=== PATIENT | female | born 1945 | race African-American/Black ===

== ENCOUNTER 2020-04-01 17:13 | Emergency (ER) | payer BC ==
[~2020-04-01] VITALS: Ht 170.2 cm; Wt 137.0 kg
[~2020-04-01 17:13] MED LIST: ASPI-1497 MT; diclofenac; losartan; naproxen
[2020-04-01] MEDS ORDERED: ACETAMINOPHEN 325MG TABLET PO STA (18:32)
[2020-04-01] MEDS ORDERED: PIPERACILLIN/TAZ 3.375G PREMIX 50 ML IV ONE (18:45)
[2020-04-01] MEDS ORDERED: VANCOMYCIN 1 G PREMIX 200 ML IV ONE (18:45)
[2020-04-01] MEDS ORDERED: SODIUM CHLORIDE 0.9% 1000ML BAG (SEPSIS BOLUS) IV ONE (18:45)
[2020-04-01 18:47] LABS: BASOPHILS % 0.5 % (0.0-2.0); EOSINOPHILS % 0.7 % (0.0-5.0); HEMOGLOBIN. 10.1 g/dL (12.0-16.0); LYMPHOCYTES % 18.1 % (20.0-50.0); MEAN CORPUSCULAR HEMOGLOBIN 32.5 pg (28.0-32.0); MEAN CORPUSCULAR VOLUME 99.8 fL (81.0-99.0); MEAN PLATELET VOLUME 10.2 fl (7.4-10.4); MONOCYTES % 11.2 % (2.0-8.0); NEUTROPHILS % 69.5 % (40.0-76.0); PLATELET 120 x1000/uL (130-400); RED CELL DISTRIBUTION WIDTH 15.2 % (11.6-14.6)
[2020-04-01 18:54] LABS: CHLORIDE 111 mEq/L (98-107)
[2020-04-01 18:57] LABS: INR 1.2; PROTHROMBIN TIME 12.3 sec (9.6-11.0)
[2020-04-01 22:59] LABS: CLARITY URINE CLOUDY (CLEAR); COLOR URINE DARK YELLOW (YELLOW); KETONES URINE NEGATIVE (NEGATIVE); LEUKOCYTE ESTERASE URINE NEGATIVE (NEGATIVE); NITRITE URINE NEGATIVE (NEGATIVE); OCCULT BLOOD URINE NEGATIVE (NEGATIVE); PROTEIN URINE 1+ (NEGATIVE); SPECIFIC GRAVITY URINE 1.025 (1.005-1.030)
[2020-04-02] MEDS ORDERED: ONDANSETRON HCL 4MG/2ML INJ IV STA (01:03)
[2020-04-02] MEDS ORDERED: MORPHINE SULFATE 4 MG/ML CPJ (NOT FOR IM USE) IV STA (01:03)
[2020-04-02 04:09] VITALS: BP 135/76
== END 2020-04-02 04:10 | disposition short-term general hospital (02) ==
LOC: ER 17:13 → CANBEDREQ 04-02 02:32 → ER 04-02 04:10
DX: T81.49XA Infection following a procedure, other surgical site, initial encounter (principal); T81.44XA Sepsis following a procedure, initial encounter; N28.9 Disorder of kidney and ureter, unspecified; G89.29 Other chronic pain; M54.89 Other dorsalgia; R00.0 Tachycardia, unspecified; I10 Essential (primary) hypertension; Y83.8 Other surgical procedures as the cause of abnormal reaction of the patient, or of later complication, without mention of misadventure at the time of the procedure; Y92.018 Other place in single-family (private) house as the place of occurrence of the external cause
CPT/HCPCS: 36415; 71045; 72131; 80053; 81003; 83605; 84484; 85025; 85610; 87040; 87086; 93005; 96374; 96375; 99285; J2543; J3370; J7030

== ENCOUNTER 2020-08-22 17:30 | Emergency (ER) | payer BC ==
[~2020-08-22] VITALS: Ht 170.2 cm; Wt 100.0 kg
[2020-08-22] MEDS ORDERED: IBUPROFEN 400MG TABLET PO ONE (18:30)
[2020-08-22] MEDS ORDERED: IBUP-2028 MT (18:36)
[2020-08-22] MEDS ORDERED: CIPHCO LEFT EAR (18:36)
[2020-08-22] MEDS ORDERED: AMOX-424 MT (19:56)
[2020-08-22 23:20] VITALS: BP 151/81
== END 2020-08-22 23:27 | disposition home or self-care (01) ==
LOC: ER 17:30
DX: T16.2XXA Foreign body in left ear, initial encounter (principal); H60.592 Other noninfective acute otitis externa, left ear; M25.562 Pain in left knee; M25.561 Pain in right knee; X58.XXXA Exposure to other specified factors, initial encounter; Y93.89 Activity, other specified; Y92.018 Other place in single-family (private) house as the place of occurrence of the external cause; I10 Essential (primary) hypertension; Z86.73 Personal history of transient ischemic attack (TIA), and cerebral infarction without residual deficits
CPT/HCPCS: 73560; 99283

== ENCOUNTER 2020-09-28 17:35 | Emergency (ER) | payer BC ==
[~2020-09-28] VITALS: Ht 167.6 cm; Wt 91.0 kg
[~2020-09-28 17:35] MED LIST changes: +AMOX-424 MT; +CIPHCO LEFT EAR; +IBUP-2028 MT
[2020-09-28 21:13] LABS: BASOPHILS % 0.3 % (0.0-2.0); EOSINOPHILS % 1.3 % (0.0-5.0); HEMATOCRIT. 25.1 % (36.0-48.0); HEMOGLOBIN. 8.6 g/dL (12.0-16.0); LYMPHOCYTES % 24.4 % (20.0-50.0); MEAN CORPUSCULAR VOLUME 105.7 fL (81.0-99.0); MONOCYTES % 4.2 % (2.0-8.0); NEUTROPHILS % 69.8 % (40.0-76.0); PLATELET 188 x1000/uL (130-400); RED BLOOD CELL COUNT 2.38 mill/uL (4.2-5.4); RED CELL DISTRIBUTION WIDTH 24.4 % (11.6-14.6)
[2020-09-28] MEDS ORDERED: SODIUM CHLORIDE 0.9% 1,000 ML IV ONE (21:15)
[2020-09-28 21:17] LABS: CHLORIDE 119 mEq/L (98-107)
[2020-09-28 21:25] LABS: INR 1.2; PROTHROMBIN TIME 12.4 sec (9.6-11.0)
[2020-09-28 21:53] LABS: CLARITY URINE CLEAR (CLEAR); COLOR URINE DARK YELLOW (YELLOW); KETONES URINE TRACE (NEGATIVE); LEUKOCYTE ESTERASE URINE TRACE (NEGATIVE); NITRITE URINE NEGATIVE (NEGATIVE); OCCULT BLOOD URINE NEGATIVE (NEGATIVE); PROTEIN URINE 2+ (NEGATIVE); SPECIFIC GRAVITY URINE 1.021 (1.005-1.030); UROBILINOGEN URINE 0.2 E.U./dL (0.2-1.0)
[2020-09-28 21:54] LABS: PLATELET ESTIMATE NORMAL
[2020-09-28] MEDS ORDERED: CEFTRIAXONE 1 G PREMIX 50 ML IV ONE (23:00)
[2020-09-29 01:00] VITALS: BP 153/74
== END 2020-09-29 02:55 | disposition short-term general hospital (02) ==
LOC: ER 17:35 → CANBEDREQ 09-29 06:14
DX: N39.0 Urinary tract infection, site not specified (principal); K52.9 Noninfective gastroenteritis and colitis, unspecified; D53.9 Nutritional anemia, unspecified; I69.354 Hemiplegia and hemiparesis following cerebral infarction affecting left non-dominant side; Z74.01 Bed confinement status
CPT/HCPCS: 36415; 71045; 74176; 80053; 81003; 83605; 83690; 83880; 84145; 84484; 85025; 85610; 87040; 87086; 93005; 96361; 96365; 99285; J0696; J7030

== ENCOUNTER 2021-01-05 13:47 | Inpatient (IN) | payer BC, MEDICARE ==
[~2021-01-05] VITALS: Ht 160 cm; Wt 119.3 kg
[2021-01-05 15:43] LABS: HEMATOCRIT. 28.5 % (36.0-48.0); HEMOGLOBIN. 8.8 g/dL (12.0-16.0); MEAN CORPUSCULAR HEMOGLOBIN 31.3 pg (28.0-32.0); PLATELET 158 x1000/uL (130-400); RED BLOOD CELL COUNT 2.82 mill/uL (4.2-5.4)
[2021-01-05 15:50] LABS: CHLORIDE 122 mEq/L (98-107)
[2021-01-05 15:51] LABS: INR 1.4; PROTHROMBIN TIME 14.3 sec (9.6-11.0)
[2021-01-05] MEDS ORDERED: VANCOMYCIN 1 G PREMIX 200 ML IV ONE (16:15)
[2021-01-05] MEDS ORDERED: PIPERACILLIN/TAZ 3.375G PREMIX 50 ML IV ONE (16:15)
[2021-01-05] MEDS ORDERED: SODIUM CHLORIDE 0.9% 1,000 ML IV ONE (16:15)
[2021-01-05 16:49] LABS: NUCLEATED RED BLOOD CELLS 2 /100 WBC; PLATELET ESTIMATE NORMAL
[2021-01-05] MEDS ORDERED: MORPHINE SULFATE 4 MG/ML CPJ (NOT FOR IM USE) IV ONE (17:15)
[2021-01-06] MEDS ORDERED: MAGNESIUM/ALUMINUM HYDROXIDE/SIMETHICONE 30ML UDC PO PRN (09:00)
[2021-01-06] MEDS ORDERED: ONDANSETRON HCL 4MG/2ML INJ IV PRN (09:00)
[2021-01-06] MEDS ORDERED: DIPHENHYDRAMINE 50MG/ML VIAL IV PRN (09:00)
[2021-01-06] MEDS ORDERED: DOCUSATE SODIUM 100MG CAPSULE PO PRN (09:00)
[2021-01-06] MEDS ORDERED: HYDROCODONE/ACETAMINOPHEN 5/325MG TABLET PO PRN (09:00)
[2021-01-06] MEDS ORDERED: ACETAMINOPHEN 650MG SUPP PR PRN (09:00)
[2021-01-06] MEDS ORDERED: LORAZEPAM 0.5MG TABLET PO PRN (09:00)
[2021-01-06] MEDS: ASPIRIN 81MG EC TABLET PO SCH (09:00)
[2021-01-06] MEDS ORDERED: ACETAMINOPHEN 325MG TABLET PO PRN (09:00)
[2021-01-06] MEDS ORDERED: GUAIFENESIN 200MG/10ML SUGAR FREE UDC PO PRN (09:00)
[2021-01-06] MEDS ORDERED: IPRATROPIUM/ALBUTEROL 0.5-3(2.5)MG/3ML NEB NEB PRN (09:00)
[2021-01-06] MEDS ORDERED: CLONIDINE 0.1MG TABLET PO PRN (09:00)
[2021-01-06] MEDS ORDERED: NA PHOS,M-B/NA PHOS,DI-BA ENEMA 118ML PR PRN (09:00)
[2021-01-06] MEDS ORDERED: CEFTRIAXONE 1 G PREMIX 50 ML IV SCH (09:00)
[2021-01-06 12:30] VITALS: BP 196/139
[2021-01-06 17:50] LABS: CHLORIDE 122 mEq/L (98-107)
[2021-01-06 17:58] LABS: CREATINE KINASE 54 IU/L (26-192)
[2021-01-06 18:01] LABS: CREATINE KINASE MB FRACTION 6.6 ng/mL (0.5-3.6)
[2021-01-06 20:00] VITALS: BP 104/68
[2021-01-06] MEDS ORDERED: VANCOMYCIN 750 MG PREMIX 150 ML IV NR (20:00)
[2021-01-06] MEDS: DEXTROSE 5% WATER 1,000 ML IV SCH (20:11)
[2021-01-06] MEDS: CEFTRIAXONE 1,000 MG in DEXTROSE 5% WATER 50 ML IV SCH (20:22)
[2021-01-06] MEDS: FAMOTIDINE 20MG TABLET PO SCH (21:00)
[2021-01-06 21:01] LABS: HEMATOCRIT. 28.6 % (36.0-48.0); HEMOGLOBIN. 9.2 g/dL (12.0-16.0); MEAN CORPUSCULAR HEMOGLOBIN 32.6 pg (28.0-32.0); MEAN CORPUSCULAR VOLUME 101.4 fL (81.0-99.0); MEAN PLATELET VOLUME 10.7 fl (7.4-10.4); PLATELET 88 x1000/uL (130-400); RED BLOOD CELL COUNT 2.82 mill/uL (4.2-5.4); RED CELL DISTRIBUTION WIDTH 20.7 % (11.6-14.6)
[2021-01-06 23:04] LABS: NUCLEATED RED BLOOD CELLS 2 /100 WBC; PLATELET ESTIMATE DECREASED
[2021-01-07] VITALS (14 sets, daily range): BP systolic 63–160; BP diastolic 24–107
[2021-01-07 00:17] LABS: CREATINE KINASE MB FRACTION 7.2 ng/mL (0.5-3.6)
[2021-01-07] MEDS: ASPIRIN 81MG EC TABLET PO SCH (08:38)
[2021-01-07 10:33] LABS: HEMATOCRIT. 27.6 % (36.0-48.0); HEMOGLOBIN. 8.4 g/dL (12.0-16.0); MEAN CORPUSCULAR HEMOGLOBIN 32.5 pg (28.0-32.0); MEAN PLATELET VOLUME 10.2 fl (7.4-10.4); PLATELET 141 x1000/uL (130-400); RED BLOOD CELL COUNT 2.58 mill/uL (4.2-5.4); RED CELL DISTRIBUTION WIDTH 21.4 % (11.6-14.6)
[2021-01-07 10:42] LABS: CHLORIDE 120 mEq/L (98-107)
[2021-01-07 10:50] LABS: HDL CHOLESTEROL 10 mg/dL (40-59); LDL CHOLESTEROL 53 mg/dL (5-100)
[2021-01-07 10:51] LABS: T4 FREE 0.63 ng/dL (0.76-1.46)
[2021-01-07] MEDS ORDERED: LIDOCAINE HCL 1% 20ML VIAL (Pyxis) INJ INFIL NR (11:00)
[2021-01-07 11:17] LABS: NUCLEATED RED BLOOD CELLS 5 /100 WBC; PLATELET ESTIMATE NORMAL
[2021-01-07] MEDS: DEXTROSE 5% WATER 1,000 ML IV SCH ×3 (12:02→23:51)
[2021-01-07] MEDS: CEFTRIAXONE 1,000 MG in DEXTROSE 5% WATER 50 ML IV SCH (12:02)
[2021-01-07] MEDS ORDERED: VANCOMYCIN 750 MG PREMIX 150 ML IV SCH (22:00)
[2021-01-07] MEDS: NOREPINEPHRINE 32 MG in DEXT 5% WATER 218 ML IV PRN (23:51)
[2021-01-07] MEDS: FAMOTIDINE 20MG TABLET PO SCH (23:52)
[2021-01-08] VITALS (98 sets, daily range): BP systolic 61–171; BP diastolic 25–116
[2021-01-08 05:45] LABS: HEMATOCRIT. 26.6 % (36.0-48.0); HEMOGLOBIN. 8.6 g/dL (12.0-16.0); MEAN CORPUSCULAR HEMOGLOBIN 31.8 pg (28.0-32.0); MEAN CORPUSCULAR VOLUME 98.7 fL (81.0-99.0); MEAN PLATELET VOLUME 10.5 fl (7.4-10.4); PLATELET 159 x1000/uL (130-400); RED BLOOD CELL COUNT 2.69 mill/uL (4.2-5.4); RED CELL DISTRIBUTION WIDTH 20.2 % (11.6-14.6)
[2021-01-08 05:51] LABS: CHLORIDE 114 mEq/L (98-107)
[2021-01-08] MEDS ORDERED: VECURONIUM BROMIDE 10 MG/VIAL IV ONE (07:41)
[2021-01-08] MEDS ORDERED: ETOMIDATE 2MG/ML 10ML VIAL IV ONE (07:41)
[2021-01-08] MEDS ORDERED: NALOXONE HCL 0.4MG/ML VIAL IV PRN (08:45)
[2021-01-08] MEDS: ASPIRIN 81MG EC TABLET PO SCH (09:00)
[2021-01-08 09:33] LABS: NUCLEATED RED BLOOD CELLS 5 /100 WBC
[2021-01-08 09:34] LABS: PLATELET ESTIMATE NORMAL
[2021-01-08] MEDS: CEFTRIAXONE 1,000 MG in DEXTROSE 5% WATER 50 ML IV SCH (11:19)
[2021-01-08] MEDS: DEXTROSE 5% WATER 1,000 ML IV SCH (14:06)
[2021-01-08] MEDS ORDERED: POTASSIUM CHLORIDE INJ 40 MEQ in DEXT 5% WATER 250 ML IV SCH (15:00)
[2021-01-08] MEDS ORDERED: SODIUM CHLORIDE 0.9% 1,000 ML IV ONE ×4 (15:30→23:15)
[2021-01-08 16:28] LABS: BG BASE EXCESS -16.2 mmol/L (-2.0-2.0); BG CARBOXYHEMOGLOBIN 0.3 % (0.5-1.5); BG HCO3 ACT 10.4 mmol/L (22.0-26.0); BG METHEMOGLOBIN 0.2 % (0.0-1.5); BG OXYHEMOGLOBIN 94.5 % (94.0-97.0); BG PCO2 27.3 mmHg (35.0-45.0); BG PO2 86.4 mmHg (75.0-100.0); BG SAMPLE SITE RIGHT BRACHIAL; BG TOTAL HEMOGLOBIN 8.7 g/dL (12.0-18.0); BG VENT MODE ROOM AIR
[2021-01-08] MEDS ORDERED: SODIUM BICARBONATE 8.4% 1 MEQ/ML 50ML SYR IV NR (16:30)
[2021-01-08] MEDS ORDERED: HYDROCORTISONE SOD SUCCINATE 250 MG/2 ML VIAL IV NR (16:45)
[2021-01-08] MEDS: MEROPENEM 500 MG in SODIUM CHLORIDE 0.9% 50 ML IV SCH (18:25)
[2021-01-08] MEDS ORDERED: ALBUMIN HUMAN 25GM/500ML (5%) IV ONE (19:00)
[2021-01-08] MEDS: SODIUM BICARBONATE 100 MEQ in DEXTROSE 5% WATER 1,000 ML IV SCH (19:32)
[2021-01-08] MEDS ORDERED: POTASSIUM CHLORIDE INJ 40 MEQ in DEXT 5% WATER 250 ML IV NR (20:00)
[2021-01-08 21:20] LABS: CLARITY URINE TURBID (CLEAR); COLOR URINE ORANGE (YELLOW); KETONES URINE NEGATIVE (NEGATIVE); LEUKOCYTE ESTERASE URINE 1+ (NEGATIVE); NITRITE URINE NEGATIVE (NEGATIVE); OCCULT BLOOD URINE 3+ (NEGATIVE); PH URINE 6.5 (4.5-8.0); PROTEIN URINE 3+ (NEGATIVE); SPECIFIC GRAVITY URINE 1.013 (1.005-1.030)
[2021-01-08 22:24] LABS: BG BASE EXCESS -12.9 mmol/L (-2.0-2.0); BG CARBOXYHEMOGLOBIN 0.3 % (0.5-1.5); BG DEOXYHEMOGLOBIN 0.4 % (0.0-5.0); BG FRACTION INSPIRED OXYGEN 100; BG METHEMOGLOBIN 0.6 % (0.0-1.5); BG OXYGEN SATURATION 99.6 % (92.0-98.5); BG OXYHEMOGLOBIN 98.7 % (94.0-97.0); BG PCO2 20.5 mmHg (35.0-45.0); BG PH 7.349 (7.350-7.450); BG PO2 554.2 mmHg (75.0-100.0); BG SAMPLE SITE LEFT BRACHIAL; BG TOTAL HEMOGLOBIN 9.1 g/dL (12.0-18.0); BG VENT MODE VENT - AC
[2021-01-08] MEDS: NOREPINEPHRINE 32 MG in DEXT 5% WATER 218 ML IV PRN (22:41)
[2021-01-08] MEDS: FAMOTIDINE 20MG TABLET PO SCH (22:48)
[2021-01-08] MEDS: PROPOFOL 10MG/ML 100ML 100 ML IV PRN (23:19)
[2021-01-09] VITALS (106 sets, daily range): BP systolic 53–151; BP diastolic 16–109
[2021-01-09 01:40] LABS: HEMATOCRIT 23.3 % (36.0-48.0); HEMOGLOBIN 7.6 g/dL (12.0-16.0)
[2021-01-09] MEDS: SODIUM BICARBONATE 100 MEQ in DEXTROSE 5% WATER 1,000 ML IV SCH (05:37)
[2021-01-09] MEDS: MEROPENEM 500 MG in SODIUM CHLORIDE 0.9% 50 ML IV SCH ×2 (05:38→17:47)
[2021-01-09] MEDS: HYDROCORTISONE SOD SUCCINATE 100 MG/2 ML VIAL IV SCH ×3 (05:38→21:17)
[2021-01-09] MEDS: NOREPINEPHRINE 32 MG in DEXT 5% WATER 218 ML IV PRN ×3 (06:53→22:58)
[2021-01-09] MEDS: ASPIRIN 81MG EC TABLET PO SCH (08:45)
[2021-01-09] MEDS ORDERED: BLOOD SUGAR DIAGNOSTIC STRIP TEST SCH (09:00)
[2021-01-09] MEDS ORDERED: SODIUM POLYSTYRENE SULFONATE 15 G/60 ML BOT PO NR (09:00)
[2021-01-09] MEDS: PROPOFOL 10MG/ML 100ML 100 ML IV PRN (09:32)
[2021-01-09] MEDS: PHENYLEPHRINE 100 MG in DEXT 5% WATER 240 ML IV PRN ×3 (10:38→21:50)
[2021-01-09] MEDS: MIDAZOLAM HCL 100 MG in SODIUM CHLORIDE 0.9% 80 ML IV PRN (10:39)
[2021-01-09] MEDS: BLOOD SUGAR DIAGNOSTIC STRIP TEST SCH ×2 (12:00→17:47)
[2021-01-09] MEDS ORDERED: INSULIN LISPRO 100 UNITS/ML SUBCUT SCH (12:00)
[2021-01-09] MEDS ORDERED: METOPROLOL TARTRATE 5MG/5ML VIAL IV SCH (12:45)
[2021-01-09] MEDS ORDERED: METOPROLOL TARTRATE 5MG/5ML VIAL IV NR (13:00)
[2021-01-09 13:23] LABS: HEMATOCRIT. 23.5 % (36.0-48.0); HEMOGLOBIN. 7.4 g/dL (12.0-16.0); MEAN CORPUSCULAR HEMOGLOBIN 33.7 pg (28.0-32.0); MEAN CORPUSCULAR VOLUME 106.7 fL (81.0-99.0)
[2021-01-09] MEDS: INSULIN LISPRO 100 UNITS/ML SUBCUT SCH ×2 (13:31→17:48)
[2021-01-09 13:42] LABS: BG BASE EXCESS -19.7 mmol/L (-2.0-2.0); BG CARBOXYHEMOGLOBIN 0.3 % (0.5-1.5); BG DEOXYHEMOGLOBIN 1.2 % (0.0-5.0); BG FRACTION INSPIRED OXYGEN 40; BG HCO3 ACT 7.1 mmol/L (22.0-26.0); BG METHEMOGLOBIN 0.1 % (0.0-1.5); BG OXYGEN SATURATION 98.8 % (92.0-98.5); BG OXYHEMOGLOBIN 98.4 % (94.0-97.0); BG PCO2 20.1 mmHg (35.0-45.0); BG PH 7.164 (7.350-7.450); BG PO2 171.5 mmHg (75.0-100.0); BG SAMPLE SITE RIGHT RADIAL; BG TOTAL HEMOGLOBIN 8.6 g/dL (12.0-18.0); BG VENT MODE VENT - AC
[2021-01-09] MEDS ORDERED: SODIUM BICARBONATE 8.4% 1 MEQ/ML 50ML SYR IV SCH (14:00)
[2021-01-09] MEDS ORDERED: SODIUM BICARBONATE 8.4% 1 MEQ/ML 50ML SYR IV NR (16:21)
[2021-01-09 16:53] LABS: NUCLEATED RED BLOOD CELLS 7 /100 WBC
[2021-01-09] MEDS: SODIUM BICARBONATE 150 MEQ in DEXTROSE 5% WATER 1,000 ML IV SCH (17:47)
[2021-01-09 19:00] LABS: BG BASE EXCESS -13.4 mmol/L (-2.0-2.0); BG CARBOXYHEMOGLOBIN 0.3 % (0.5-1.5); BG FRACTION INSPIRED OXYGEN 40; BG HCO3 ACT 10.8 mmol/L (22.0-26.0); BG METHEMOGLOBIN 0.4 % (0.0-1.5); BG OXYHEMOGLOBIN 98.3 % (94.0-97.0); BG PCO2 20.6 mmHg (35.0-45.0); BG PH 7.339 (7.350-7.450); BG PO2 194.2 mmHg (75.0-100.0); BG SAMPLE SITE RIGHT RADIAL; BG TOTAL HEMOGLOBIN 8.1 g/dL (12.0-18.0); BG VENT MODE VENT - AC
[2021-01-09] MEDS: FAMOTIDINE 20MG TABLET PO SCH (21:17)
[2021-01-10] VITALS (95 sets, daily range): BP systolic 27–147; BP diastolic 14–109
[2021-01-10] MEDS: BLOOD SUGAR DIAGNOSTIC STRIP TEST SCH ×5 (00:42→23:09)
[2021-01-10] MEDS: INSULIN LISPRO 100 UNITS/ML SUBCUT SCH ×5 (00:47→23:40)
[2021-01-10] MEDS: PHENYLEPHRINE 100 MG in DEXT 5% WATER 240 ML IV PRN ×4 (03:30→20:03)
[2021-01-10 05:15] LABS: HEMATOCRIT. 23.2 % (36.0-48.0); HEMOGLOBIN. 7.5 g/dL (12.0-16.0); MEAN CORPUSCULAR HEMOGLOBIN 32.5 pg (28.0-32.0); MEAN CORPUSCULAR VOLUME 100.5 fL (81.0-99.0); RED BLOOD CELL COUNT 2.31 mill/uL (4.2-5.4); RED CELL DISTRIBUTION WIDTH 20.8 % (11.6-14.6)
[2021-01-10] MEDS: HYDROCORTISONE SOD SUCCINATE 100 MG/2 ML VIAL IV SCH ×3 (06:16→21:09)
[2021-01-10] MEDS: MEROPENEM 500 MG in SODIUM CHLORIDE 0.9% 50 ML IV SCH ×2 (06:16→18:16)
[2021-01-10] MEDS ORDERED: VANCOMYCIN 1 G PREMIX 200 ML IV NR (07:00)
[2021-01-10] MEDS: NOREPINEPHRINE 32 MG in DEXT 5% WATER 218 ML IV PRN (08:33)
[2021-01-10] MEDS: SODIUM BICARBONATE 150 MEQ in DEXTROSE 5% WATER 1,000 ML IV SCH ×2 (08:34→18:16)
[2021-01-10] MEDS: ASPIRIN 81MG EC TABLET PO SCH (08:34)
[2021-01-10 08:39] LABS: BG BASE EXCESS -12.9 mmol/L (-2.0-2.0); BG CARBOXYHEMOGLOBIN 0.3 % (0.5-1.5); BG DEOXYHEMOGLOBIN 1.4 % (0.0-5.0); BG METHEMOGLOBIN 0.3 % (0.0-1.5); BG OXYGEN SATURATION 98.6 % (92.0-98.5); BG PCO2 20.2 mmHg (35.0-45.0); BG PH 7.354 (7.350-7.450); BG PO2 146.6 mmHg (75.0-100.0); BG SAMPLE SITE RIGHT RADIAL; BG TOTAL HEMOGLOBIN 9.1 g/dL (12.0-18.0); BG VENT MODE VENT - AC
[2021-01-10] MEDS ORDERED: SODIUM BICARBONATE 8.4% 1 MEQ/ML 50ML SYR IV SCH (11:45)
[2021-01-10] MEDS ORDERED: POTASSIUM CHLORIDE INJ 40 MEQ in DEXT 5% WATER 250 ML IV SCH (13:00)
[2021-01-10] MEDS: MIDAZOLAM HCL 100 MG in SODIUM CHLORIDE 0.9% 80 ML IV PRN (14:28)
[2021-01-10 14:31] LABS: NUCLEATED RED BLOOD CELLS 8 /100 WBC
[2021-01-10 14:33] LABS: PLATELET ESTIMATE MARKEDLY DECREASED
[2021-01-10 14:42] LABS: PLATELET 18 x1000/uL (130-400)
[2021-01-10] MEDS: FAMOTIDINE 20MG TABLET PO SCH (21:09)
[2021-01-11] VITALS (64 sets, daily range): BP systolic 25–177; BP diastolic 16–121
[2021-01-11] MEDS: PHENYLEPHRINE 100 MG in DEXT 5% WATER 240 ML IV PRN ×5 (01:27→23:04)
[2021-01-11] MEDS: SODIUM BICARBONATE 150 MEQ in DEXTROSE 5% WATER 1,000 ML IV SCH ×2 (04:00→19:09)
[2021-01-11] MEDS: BLOOD SUGAR DIAGNOSTIC STRIP TEST SCH ×3 (05:17→18:42)
[2021-01-11] MEDS: HYDROCORTISONE SOD SUCCINATE 100 MG/2 ML VIAL IV SCH ×3 (05:24→21:17)
[2021-01-11] MEDS: INSULIN LISPRO 100 UNITS/ML SUBCUT SCH ×3 (05:24→18:00)
[2021-01-11] MEDS: MEROPENEM 500 MG in SODIUM CHLORIDE 0.9% 50 ML IV SCH ×2 (05:24→18:52)
[2021-01-11] MEDS: NOREPINEPHRINE 32 MG in DEXT 5% WATER 218 ML IV PRN ×2 (07:13→23:04)
[2021-01-11 08:04] LABS: BG BASE EXCESS -11.7 mmol/L (-2.0-2.0); BG CARBOXYHEMOGLOBIN 0.3 % (0.5-1.5); BG DEOXYHEMOGLOBIN 0.8 % (0.0-5.0); BG FRACTION INSPIRED OXYGEN 40; BG HCO3 ACT 12.4 mmol/L (22.0-26.0); BG METHEMOGLOBIN 0.6 % (0.0-1.5); BG OXYGEN SATURATION 99.2 % (92.0-98.5); BG OXYHEMOGLOBIN 98.3 % (94.0-97.0); BG PCO2 22.2 mmHg (35.0-45.0); BG PH 7.365 (7.350-7.450); BG SAMPLE SITE RIGHT RADIAL; BG TOTAL HEMOGLOBIN 7.3 g/dL (12.0-18.0); BG TOTAL RESPIRATORY RATE 25 b/min; BG VENT MODE VENT - AC
[2021-01-11 08:31] LABS: HEMATOCRIT. 22.3 % (36.0-48.0); HEMOGLOBIN. 7.1 g/dL (12.0-16.0); MEAN CORPUSCULAR HEMOGLOBIN 31.6 pg (28.0-32.0); MEAN CORPUSCULAR VOLUME 99.8 fL (81.0-99.0); MEAN PLATELET VOLUME 8.2 fl (7.4-10.4); RED BLOOD CELL COUNT 2.23 mill/uL (4.2-5.4); RED CELL DISTRIBUTION WIDTH 20.9 % (11.6-14.6)
[2021-01-11 09:21] LABS: PLATELET ESTIMATE MARKEDLY DECREASED
[2021-01-11] MEDS: ASPIRIN 81MG EC TABLET PO SCH (09:23)
[2021-01-11 09:24] LABS: PLATELET 21 x1000/uL (130-400)
[2021-01-11] MEDS ORDERED: POTASSIUM CHLORIDE 20MEQ TABLET SR PO NR (10:30)
[2021-01-11] MEDS ORDERED: SODIUM BICARBONATE 8.4% 1 MEQ/ML 50ML SYR IV NR (10:30)
[2021-01-11] MEDS ORDERED: DIGOXIN 500MCG/2ML AMP IV NR (10:45)
[2021-01-11] MEDS: METOCLOPRAMIDE HCL 10MG/2ML VIAL IV SCH ×2 (13:25→18:52)
[2021-01-11] MEDS: DEXTROSE 50% WATER 50ML SYRINGE IV PRN (18:52)
[2021-01-11] MEDS: FAMOTIDINE 20MG TABLET PO SCH (21:17)
[2021-01-11] MEDS: VASOPRESSIN 20 UNIT in SODIUM CHLORIDE 0.9% 99 ML IV PRN (21:18)
[2021-01-12] VITALS (61 sets, daily range): BP systolic 50–148; BP diastolic 19–113
[2021-01-12] MEDS: BLOOD SUGAR DIAGNOSTIC STRIP TEST SCH ×8 (00:27→22:12)
[2021-01-12] MEDS ORDERED: ALBUMIN HUMAN 12.5G/250ML (5%) IV SCH (00:29)
[2021-01-12] MEDS: METOCLOPRAMIDE HCL 10MG/2ML VIAL IV SCH ×5 (01:05→23:51)
[2021-01-12] MEDS: SODIUM BICARBONATE 150 MEQ in DEXTROSE 5% WATER 1,000 ML IV SCH ×3 (03:00→22:34)
[2021-01-12] MEDS: VASOPRESSIN 20 UNIT in SODIUM CHLORIDE 0.9% 99 ML IV PRN ×3 (04:00→19:01)
[2021-01-12] MEDS: PHENYLEPHRINE 100 MG in DEXT 5% WATER 240 ML IV PRN ×4 (04:00→22:11)
[2021-01-12] MEDS: NOREPINEPHRINE 32 MG in DEXT 5% WATER 218 ML IV PRN ×4 (04:00→22:10)
[2021-01-12 04:59] LABS: HEMATOCRIT. 23.5 % (36.0-48.0); HEMOGLOBIN. 7.9 g/dL (12.0-16.0); MEAN CORPUSCULAR HEMOGLOBIN 32.4 pg (28.0-32.0); MEAN PLATELET VOLUME 8.5 fl (7.4-10.4); RED BLOOD CELL COUNT 2.45 mill/uL (4.2-5.4); RED CELL DISTRIBUTION WIDTH 17.2 % (11.6-14.6)
[2021-01-12] MEDS: INSULIN LISPRO 100 UNITS/ML SUBCUT SCH ×5 (05:24→23:41)
[2021-01-12] MEDS: DEXTROSE 50% WATER 50ML SYRINGE IV PRN (05:29)
[2021-01-12] MEDS: HYDROCORTISONE SOD SUCCINATE 100 MG/2 ML VIAL IV SCH ×3 (05:29→21:13)
[2021-01-12 05:33] LABS: PLATELET 18 x1000/uL (130-400)
[2021-01-12] MEDS ORDERED: DIGOXIN 500MCG/2ML AMP IV SCH (06:15)
[2021-01-12] MEDS: MEROPENEM 500 MG in SODIUM CHLORIDE 0.9% 50 ML IV SCH ×2 (06:34→18:05)
[2021-01-12 07:19] LABS: NUCLEATED RED BLOOD CELLS 6 /100 WBC; PLATELET ESTIMATE MARKEDLY DECREASED
[2021-01-12] MEDS ORDERED: FAMOTIDINE 20MG/2ML VIAL IV SCH (09:00)
[2021-01-12] MEDS: ASPIRIN 81MG EC TABLET PO SCH ×2 (09:00→09:13)
[2021-01-12 10:03] LABS: BG BASE EXCESS -15.1 mmol/L (-2.0-2.0); BG CARBOXYHEMOGLOBIN 0.3 % (0.5-1.5); BG DEOXYHEMOGLOBIN 4.3 % (0.0-5.0); BG FRACTION INSPIRED OXYGEN 40; BG HCO3 ACT 10.3 mmol/L (22.0-26.0); BG METHEMOGLOBIN 0.3 % (0.0-1.5); BG OXYGEN SATURATION 95.7 % (92.0-98.5); BG OXYHEMOGLOBIN 95.1 % (94.0-97.0); BG PCO2 22.8 mmHg (35.0-45.0); BG PH 7.272 (7.350-7.450); BG PO2 84.3 mmHg (75.0-100.0); BG SAMPLE SITE RIGHT RADIAL; BG TOTAL HEMOGLOBIN 8.1 g/dL (12.0-18.0); BG VENT MODE VENT - AC
[2021-01-12] MEDS ORDERED: SODIUM BICARBONATE 8.4% 1 MEQ/ML 50ML SYR IV NR (11:30)
[2021-01-12] MEDS ORDERED: CALCIUM GLUCONATE 1GM PREMIX 50 ML IV NR (13:00)
[2021-01-12] MEDS ORDERED: DOPAMINE 400MG/250ML PREMIX 250 ML IV PRN (14:00)
[2021-01-12] MEDS ORDERED: VANCOMYCIN 1 G PREMIX 200 ML IV SCH (21:00)
[2021-01-13] VITALS (7 sets, daily range): BP systolic 41–177; BP diastolic 16–144
[2021-01-13] MEDS: BLOOD SUGAR DIAGNOSTIC STRIP TEST SCH ×4 (00:30→06:05)
[2021-01-13] MEDS: PHENYLEPHRINE 100 MG in DEXT 5% WATER 240 ML IV PRN (02:40)
[2021-01-13] MEDS: NOREPINEPHRINE 32 MG in DEXT 5% WATER 218 ML IV PRN (02:41)
[2021-01-13] MEDS: INSULIN LISPRO 100 UNITS/ML SUBCUT SCH (06:00)
[2021-01-13] MEDS: MEROPENEM 500 MG in SODIUM CHLORIDE 0.9% 50 ML IV SCH (06:04)
[2021-01-13] MEDS: METOCLOPRAMIDE HCL 10MG/2ML VIAL IV SCH (06:04)
[2021-01-13] MEDS: HYDROCORTISONE SOD SUCCINATE 100 MG/2 ML VIAL IV SCH (06:04)
[2021-01-13] MEDS ORDERED: DEXTROSE 50% WATER 50ML SYRINGE IV ONE ×3 (08:22→14:09)
[2021-01-13 08:25] LABS: BG BASE EXCESS -25.6 mmol/L (-2.0-2.0); BG CARBOXYHEMOGLOBIN 0.3 % (0.5-1.5); BG DEOXYHEMOGLOBIN 29.5 % (0.0-5.0); BG METHEMOGLOBIN 0.9 % (0.0-1.5); BG OXYGEN SATURATION 70.1 % (92.0-98.5); BG OXYHEMOGLOBIN 69.3 % (94.0-97.0); BG PCO2 27.5 mmHg (35.0-45.0); BG PH 6.877 (7.350-7.450); BG PO2 50.5 mmHg (75.0-100.0); BG SAMPLE SITE RIGHT RADIAL; BG TOTAL HEMOGLOBIN 4.9 g/dL (12.0-18.0); BG VENT MODE VENT - AC
[2021-01-13] MEDS ORDERED: CALCIUM CHLORIDE 1GM/10ML SYR IV ONE (14:09)
[2021-01-13] MEDS ORDERED: EPINEPHRINE 0.1MG/ML (1:10,000) 10ML SYR ONE (14:09)
[2021-01-13] MEDS ORDERED: SODIUM BICARBONATE 8.4% 1 MEQ/ML 50ML SYR IV ONE (14:09)
== END 2021-01-13 14:00 | DRG 870 ==
LOC: ER 14:49 → MICUSO 20:50 → EDBEDREQTM 20:54 → EDBEDREQ 20:54 → EDBEDREQSVC 20:54 → 8WST 01-06 07:20 → MICUSO 01-07 21:34
PROVIDERS: ADMIT Internal Medicine; ATTEND Internal Medicine
PROC: 5A1955Z Respiratory Ventilation, Greater than 96 Consecutive Hours (ICD-10-PCS; principal; 2021-01-08)
PROC: 02HV33Z Insertion of Infusion Device into Superior Vena Cava, Percutaneous Approach (ICD-10-PCS; 2021-01-08)
PROC: B548ZZA Ultrasonography of Superior Vena Cava, Guidance (ICD-10-PCS; 2021-01-08)
PROC: 0BH17EZ Insertion of Endotracheal Airway into Trachea, Via Natural or Artificial Opening (ICD-10-PCS; 2021-01-08)
PROC: 30233N1 Transfusion of Nonautologous Red Blood Cells into Peripheral Vein, Percutaneous Approach (ICD-10-PCS; 2021-01-11)
PROC: 30233R1 Transfusion of Nonautologous Platelets into Peripheral Vein, Percutaneous Approach (ICD-10-PCS; 2021-01-12)
PROC: 5A12012 Performance of Cardiac Output, Single, Manual (ICD-10-PCS; 2021-01-13)
DX: A41.9 Sepsis, unspecified organism (principal); J96.00 Acute respiratory failure, unspecified whether with hypoxia or hypercapnia; I50.33 Acute on chronic diastolic (congestive) heart failure; J69.0 Pneumonitis due to inhalation of food and vomit; R65.21 Severe sepsis with septic shock; D68.9 Coagulation defect, unspecified; E87.0 Hyperosmolality and hypernatremia; G93.40 Encephalopathy, unspecified; N17.9 Acute kidney failure, unspecified; I13.0 Hypertensive heart and chronic kidney disease with heart failure and stage 1 through stage 4 chronic kidney disease, or unspecified chronic kidney disease; I31.3 Pericardial effusion (noninflammatory); N39.0 Urinary tract infection, site not specified; E87.2 Acidosis; I46.9 Cardiac arrest, cause unspecified; D64.9 Anemia, unspecified; K76.0 Fatty (change of) liver, not elsewhere classified; Z20.822 Contact with and (suspected) exposure to COVID-19; L89.159 Pressure ulcer of sacral region, unspecified stage; N18.9 Chronic kidney disease, unspecified; D69.6 Thrombocytopenia, unspecified; E87.5 Hyperkalemia; L89.629 Pressure ulcer of left heel, unspecified stage; L89.619 Pressure ulcer of right heel, unspecified stage; Z86.73 Personal history of transient ischemic attack (TIA), and cerebral infarction without residual deficits; Z74.01 Bed confinement status; Z90.49 Acquired absence of other specified parts of digestive tract; I73.9 Peripheral vascular disease, unspecified; R00.0 Tachycardia, unspecified
CPT/HCPCS: 31500; 36415; 36600; 71045; 74018; 74176; 76937; 80048; 80053; 80061; 80202; 81003; 82140; 82375; 82550; 82553; 82805; 82962; 83036; 83605; 83735; 84132; 84145; 84439; 84443; 84478; 84484; 85014; 85018; 85025; 85049; 86850; 86900; 86920; 86945; 87070; 87077; 87186; 87426; 93005; 93306; 93923; 93970; 94002; 94003; 94640; 99291; A6261; C1725; J0610; J0696; J1160; J1265; J1720; J1815; J2185; J2250; J2270; J2370; J2543; J2704; J2765; J3370; J3480; J3490; J7030; J7040; J7050; J7060; J7070; P9016; P9034; P9041; U0003; U0005; A4315; P9036